=== PATIENT | female | born 1990 | race African-American/Black ===

== ENCOUNTER 2016-07-31 22:20 | Inpatient (IN) | payer OTHER ==
--- NOTE | ~2016-07-31 | US84 ---
[id number] [facility] [address] [place], [place] [address] [id number] E MR#: [id number] Acc #: [id number] NAME: YANDEL RUFFIN : 1990 SEX: F STUDY DATE/TIME: 07/31/2016 22:32 UNIT: [facility] ROOM: STUDY DESCRIPTION: US LE Veins Complete Thony Stdy Attending Physician: Jonnie Ernst D.O. Ordering Physician: Jonnie Ernst D.O. Primary Care Physician: No Primary Care Physician MEDICAL IMAGING REPORT This report is preliminary unless electronic signature is present EXAM Venous Doppler ultrasound, both legs, 07/31/2016. HISTORY 26-year-old female in the ED complaining of 1-week history of bilateral lower extremity pain and swelling. TECHNIQUE Venous ultrasound examination of both lower extremities was performed using grayscale, spectral Doppler and color flow Doppler imaging. FINDINGS The examination is negative. There is no evidence of deep venous thrombus from the groin to the lower calf bilaterally. Visualized greater saphenous veins are also patent. IMPRESSION Negative examination. No evidence of lower extremity deep venous thrombosis. Dictated by... Garrett Law M.D. THIS IS AN ELECTRONICALLY VERIFIED REPORT Garrett Law M.D. at 08/05/2016 5:00 PM FERCHO/lila TD: 08/01/2016 07:10 JOB #: [id number] MEDICAL IMAGING REPORT Page 1 of 1 COPY
--- NOTE | ~2016-07-31 | HP ---
Unit #: [id number] #: [id number] Patient: YANDEL RUFFIN [id number] [address] [place], [place] [address] [id number] I MR#: [id number] NAME: YANDEL RUFFIN ROOM: 13250 Age: 26 Sex: F Admission Date: 08/01/2016 : 1990 Attending Physician: Guerrero Boss M.D. Primary Care Physician: No Primary Care Physician HISTORY AND PHYSICAL CHIEF COMPLAINT Bilateral lower extremity edema and shortness of breath. HISTORY OF PRESENTING ILLNESS The patient is a 26-year-old -[place] lady with a past medical history of morbid obesity, diabetes mellitus type 2, on insulin, poorly controlled, presented to the emergency room with a chief complaint of edema of both legs which is persisting for almost one week. She mentions that she is unable to lie flat in the bed. She requires pillows and she wakes up in the night frequently due to shortness of breath. She denies any change in the medications. Because of the edema of the lower extremities, she had an ultrasound of the lower extremities which was negative for DVT. She was given Lasix and is getting admitted for further management. She denies any fevers. Complains of occasional cough with production of sputum. No chills. Did not receive a flu vaccine. No chest pains, no palpitations, no abdominal pain, no diarrhea. No dysuria. No recent change in the medications. For diabetes, she follows up with Dr. Sweeney and she mentions she saw him there days ago. PAST MEDICAL HISTORY 1. History of diabetes mellitus type 2, poorly controlled. 2. History of hypertension. 3. History of urinary tract infection with Klebsiella in 2010. 4. History of glaucoma and left eye partial blindness. SOCIAL HISTORY Currently on disability. Smokes a pack a day. Denies alcohol or illicit drugs. HOME MEDICATIONS We are trying to get a list from the pharmacy. She mentions she is on Levemir and Humalog insulin. Apparently the [facility] which she goes told the nurse that she didn't brass pickler the medications for more than a year to get from them. ALLERGIES Include iodine, shellfish. FAMILY HISTORY Positive for breast cancer and prostate cancer in her grandmother and Unit #: [id number] #: [id number] Patient: YANDEL RUFFIN grandfather respectively. REVIEW OF SYSTEMS Complete review of systems were negative except for what is mentioned in the HPI. PHYSICAL EXAMINATION VITAL SIGNS: Temperature 98, pulse 115, respiratory rate 18, blood pressure 139/78. GENERAL: The patient is moderately obese. Alert and oriented x3, lying in the bed in no acute distress. HEENT: Normocephalic, atraumatic. No icterus. PERRLA. Extraocular movements intact. NECK: Supple. No JVD. HEART: S1, S2. Tachycardic. CHEST: Bilaterally equal, bibasilar crackles. ABDOMEN: Obese, soft, nontender. She does have some edema in the lower abdomen. EXTREMITIES: 2+ edema. Hold lower extremities. NEUROLOGICAL: No focal deficits. Kindly note - left eye is red, swollen which she mentions at the baseline. DIAGNOSTIC STUDIES LABORATORY: Glucose 260, BUN 18, creatinine 0.6, sodium 132, potassium 3.9, chloride 101, bicarb 23, albumin 2.8. WBC 8.4, hemoglobin 10.7, MCV 71, platelet count 437. UA shows 1+ protein, leukocyte esterase and nitrite negative. RBC 10-25, WBC 0-2, bacteria negative. IMAGING: Chest x-ray essentially normal. ASSESSMENT AND PLAN 1. Edema and shortness of breath consistent with possible acute systolic heart failure: Will check a stat 2D echo with Doppler. Will request Cardiology to evaluate. Will keep her on Lasix 40 mg IV b.i.d. Will also start on a low dose of lisinopril 5 mg p.o. daily. I explained to her about the side effects of lisinopril including cough, acute renal failure and angioedema. Will also start her on beta marychuy, Coreg 3.125 mg twice a day. Will check lipid panel. Will check a TSH. Will gently diurese her and monitor. I explained to her that she needs to take a low salt diet. 2. Diabetes type 2, poorly controlled: Will check an A1c from previous hospitalizations. They were issues with noncompliance and for that she needs to watch her diet and take her insulin regularly. Will also request dietary to evaluate her. 3. Morbid obesity: Will check an A1c, TSH. Will also check a lipid panel and will go from there. 4. History of glaucoma: Will request her to follow with tenter frame operator as an outpatient. 5. Anemia with hemoglobin of 10 and microcytic: Will check iron storers. 6. DVT precautions. Further recommendations per hospital course. Unit #: [id number] #: [id number] Patient: YANDEL RUFFIN Dictated by Charmaine Ovalle/luiz TD: 08/01/2016 11:51 JOB #: [id number] HISTORY AND PHYSICAL Page 1 of 1 X X HISTORY AND PHYSICAL
--- NOTE | ~2016-07-31 | CO ---
Unit #: [id number] #: [id number] Patient: YANDEL RUFFIN [id number] [facility] [address] [place], [place] [address] [id number] I MR#: [id number] NAME: YANDEL RUFFIN ROOM: 563 Age: 26 Sex: F Admission Date: 08/01/2016 : 1990 Attending Physician: Guerrero Boss M.D. Primary Care Physician: Primary Care Physician No Consultation Date: 08/01/2016 CONSULTATION REPORT HISTORY OF PRESENT ILLNESS This is a 26-year-old female, with past medical history of uncontrolled type 1 diabetes with the last A1C of 13.6, hyperlipidemia, high blood pressure although she is on lisinopril at home but never been diagnosed with hypertension and chronic migraines. She uses tobacco, smokes usq-if-[id number] cigarettes daily. She presented to the [facility] emergency room with complaints of bilateral lower extremity pain and swelling for about two weeks, and in the emergency room her blood pressure, on admission was 191/101. Urinalysis also showed that she had 1+ protein and glucose was greater than 1000 in her urine. She follows with Dr. Sweeney for her diabetes. She has been a type 1 diabetic since the age of 9. Her last A1c was 13.6 and prior to that was 12.3. A bilateral lower extremity Doppler was obtained to rule out DVT and was negative for any DVT. Her D-dimer, on admission was 380. Albumin was found to be only 2.8, glucose was 307, sodium was 131, troponin has been less than 0.03 x2. Cardiac testing included an EKG done on 07/31 which showed sinus tachycardia, rate of 109 beats per minute. Also diagnostic testing in the ER, chest x-ray was completed on 07/31 and showed no active disease with borderline cardiomegaly and clear lungs. She also has a history of retinal detachment and she recently underwent left eye surgery. ALLERGIES None. HOME MEDICATIONS 1. Lipitor 20 mg daily 2. Flexeril 10 mg every8 hours as needed for muscle spasms 3. Neurontin 300 mg three times a day 4. Lantus Solostar 30 units at bedtime 5. NovoLog FlexPen 10 units subcu daily with meals 6. Lisinopril 10 mg p.o. daily FAMILY HISTORY Noncontributory. SOCIAL HISTORY She has been a diabetic since the age of 9, she does smoke two cigarettes per day. She denies any alcohol or illicit drug use. REVIEW OF SYSTEMS She has complaints of abdominal distention, her pants have been getting tighter, and bilateral lower extremity for about two weeks. She does complain of shortness of breath when she exerts herself for only about two weeks. She has had chest pain before; however, she has not had any in the Unit #: [id number] #: [id number] Patient: YANDEL RUFFIN last [id number]-[id number] weeks. She denies any palpitations, she denies orthopnea, she is legally blind in her left eye she reports. She has no dizziness and no syncope or presyncope. She has no numbness or tingling, or claudication to her lower extremities. PHYSICAL EXAMINATION VITAL SIGNS: Temperature 98.0, heart rate of 118, respirations 18, blood pressure 145/82 currently and she is 86 kilograms. GENERAL: Well-developed, well-nourished and an obese female who appears in no acute distress. NECK: Obese with no jugular venous distention and no bruits appreciated. LUNGS: Clear to auscultation. CARDIOVASCULAR: She is in a regular rate but is tachycardic. S1, S2 noted. She has possibly a mild gallop. ABDOMEN: Distended and tight but is nontender. EXTREMITIES: Also tight, she has tightness to her skin and she has very weak pulses. DIAGNOSTIC STUDIES Includes: LABORATORY: Laboratory testing included sodium 131, potassium 4.3, chloride 100, CO2 24, BUN is 13, creatinine is 0.6, glucose 307, albumin is 2.8, D-dimer was 390, hemoglobin is 10.7, hematocrit 34.5, platelets 437, WBCs 11.1, troponin had been less than 0.03 x2. All her other labs are unremarkable. Urinalysis; however, shows 1+ protein and over 1000 glucose. IMAGING: Chest x-ray on 07/31, showed no active disease, borderline cardiomegaly, and clear lungs. Bilateral lower extremity Doppler was negative for DVT. CARDIOVASCULAR: EKG on 07/31/16 showed sinus tachycardia, rate of 109. IMPRESSION 1. Uncontrolled diabetes. 2. Hypertension, uncontrolled or resistant hypertension. 3. Obesity. 4. Current tobacco use. 5. Tachycardia. 6. Generalized swelling to all extremities and abdomen. PLAN We will check a 2D echo, monitor her labs, check her thyroid function with a TSH and A1c for diabetes. Diurese her to help her blood pressure and start antihypertensives, including atenolol 25 mg daily with parameters to hold for a heart rate of less than 60 or systolic less than 100, Lasix 20 mg p.o. b.i.d., hold for systolic less than 100, hydralazine 25 b.i.d. hold for systolic less than 100 and Norvasc 5 mg p.o. daily, hold if systolic is less than 100. Further plan per Dr. Hurst or Dr. Tobar. Thank you for this consultation. Dictated by... Marilee Shearer APRN for Unit #: [id number] #: [id number] Patient: YANDEL RUFFIN M.D. TA/luda TD: 08/02/2016 14:59 JOB #: [id number] CONSULTATION REPORT Page 1 of 1 X X CONSULTATION REPORT
--- NOTE | ~2016-07-31 | CR72 ---
[facility] A Service of [facility] RADIOLOGY TEXT RESULTS PATIENT: YANDEL RUFFIN LOCATION: [facility] 563-01 : [birth year] UNIT #: [id number] AGE: [address]: Andreas Bryan MD SEX: F ORDER DR: [id number] [facility] [address] [place], [place] [address] [id number] E MR#: [id number] Acc #: [id number] NAME: YANDEL RUFFIN : 1990 SEX: F STUDY DATE/TIME: 07/31/2016 23:30 UNIT: [facility] ROOM: STUDY DESCRIPTION: CR Chest Single View Portable Attending Physician: Jnonie Ernst D.O. Ordering Physician: Jonnie Ernst D.O. Primary Care Physician: Primary Care Physician No MEDICAL IMAGING REPORT This report is preliminary unless electronic signature is present EXAM Portable chest x-ray 07/31/2016 HISTORY 26-year-old female in the ED complaining of 1-week history of lower extremity swelling. TECHNIQUE AP portable upright chest x-ray. FINDINGS Borderline cardiomegaly. Pulmonary vascularity is normal. The lungs are clear. No visible pulmonary infiltrate or pleural effusion. No change since 02/19/2016. IMPRESSION 1. No active disease. 2. Borderline cardiomegaly. Lungs clear. 3. No change since 02/19/2016. Dictated by... Garrett Law M.D. THIS IS AN ELECTRONICALLY VERIFIED REPORT Garrett Law M.D. at 08/05/2016 5:00 PM FERCHO/tiffanie TD: 08/01/2016 07:23 JOB #: [id number] MEDICAL IMAGING REPORT Page 1 of 1 COPY
--- NOTE | ~2016-07-31 | EKG ---
PATIENT: YANDEL RUFFIN UNIT #: [id number] Ventricular Rate: 109 BPM Atrial Rate: 109 BPM P-R Interval: 156 ms QRS Duration: 72 ms Q-T Interval: 346 ms QTC Calculation(Bezet): 465 ms P [place]: 62 degrees Calculated R [place]: 17 degrees Calculated T [place]: 47 degrees Diagnosis Line: Sinus tachycardia Diagnosis Line: Otherwise normal ECG Diagnosis Line: No previous ECGs available Diagnosis Line: Confirmed by EDWIN CARNEY MD ([id number]) on 08/04/2016 Diagnosis Line: 10:42:06 PM INTERPRETING MD: ROMMEL VU
--- NOTE | ~2016-07-31 | DS ---
Unit #: [id number] #: [id number] Patient: YANDEL RUFFIN [id number] [address] [place], [place] [address] [id number] I MR#: [id number] NAME: YANDEL RUFFIN ROOM: 563 Age: 26 Sex: F Admission Date: 08/01/2016 : 1990 Discharge Date: 08/05/2016 Attending Physician: Andreas Bryan M.D. Primary Care Physician: Primary Care Physician No DISCHARGE SUMMARY DISCHARGE DIAGNOSES 1. Acute on chronic diastolic heart failure. 2. Uncontrolled type 2 diabetes. 3. Morbid obesity. 4. Glaucoma. HOSPITAL COURSE The patient is a 26-year-old female, who presented to [facility] Emergency Department with a complaint of shortness of breath. Her symptom has been going on for approximately one week and associated with bilateral lower extremity edema. She also describes some orthopnea. The patient was admitted and started on diuretics. 2D echo was ordered and revealed a grade 1 diastolic dysfunction with normal ejection fraction. The patient's Lasix was dosed at 40 mg IV b.i.d. and the patient has diuresed well. At this time, she is being discharged on the same dose orally. In addition to the above, the patient was noted to have poorly controlled diabetes with an A1c of 12.8. In the hospital, she was managed with Levemir and NovoLog and is being discharged on the same. The patient also has had a complaint of eye pain associated with her glaucoma. She received some pain medication for this, but states that the real treatment is visit to her reception, Dr. Gómez which she anticipates happening in 2 days. Given the patient's good diuresis and the statement that her breathing is overall back to baseline. The patient is being discharged home at this time. DISCHARGE MEDICATIONS Neurontin 300 mg p.o. t.i.d., Coreg 6.25 mg p.o. b.i.d., Lasix 40 mg p.o. b.i.d., Lipitor 20 mg p.o. daily, hydralazine 25 mg p.o. t.i.d., lisinopril 20 mg daily, Levemir 25 units subcu b.i.d., NovoLog 10 units with meals, Flexeril 10 mg p.o. q.8 hours p.r.n., tramadol 50 mg p.o. q.8 hours p.r.n. FOLLOWUP The patient is to follow up with Dr. Tobar in 2 to 3 months. Additionally as mentioned above, the patient should follow up with Dr. óGmez in 2 days as this appointment had previously been scheduled. Unit #: [id number] #: [id number] Patient: YANDEL RUFFIN DISCHARGE DIET The patient should adhere to a healthy heart and diabetic diet. Dictated by... Andreas Bryan M.D. PABLO/hilario TD: 08/06/2016 02:37 JOB #: [id number] DISCHARGE SUMMARY Page 1 of 1 X Andreas Bryan MD X DISCHARGE SUMMARY
[~2016-07-31 22:20] MED LIST: ACETAMINOPHEN PO; ACETAMINOPHEN325 MG PO; AMOXICILLIN500 M1 PO; BACTRIM DS TABL1 TA1 PO; CELEXA20 MG PO; CIPRO PO; CIPRO750 MG PO; DOXYCYCLINE150 MG PO; FEOSOL PO; FLEXERIL10 MG PO; HUMALOG100 U/ML; HUMALOG100 U/ML SUBQ; HUMULIN R100 U/ML SUBQ; LANTUS100 U/ML SUBQ; LANTUS100 UNITS/; LANTUS100 UNITS/ SUBQ; LEVAQUIN750 MG PO; LEVEMIR100 UNITS/ SUBQ; LORTAB 5/500 TA1 TA1 PO; NAPROSYN500 MG PO; NO MEDICATIONS; NOVOLIN N100 UNIT/1 SQ; NOVOLIN N100 UNIT/1 SUBQ; NOVOLIN R100 UNITS/ INJ; NOVOLIN R100 UNITS/ SUBQ; PHENERGAN PR; PRILOSEC PO; VICODIN PO; ZOFRAN PO
[2016-08-01 00:35] LABS: CULTURE INDICATED? YES; U HYALINE CASTS AUWI 0-2 /[LPF]; URINE APPEARANCE CLEAR; URINE BACTERIA AUWI 1+ (NEGATIVE); URINE BILIRUBIN NEG (NEG); URINE BLOOD TRACE (NEG); URINE COLOR YELLOW; URINE GLUCOSE >1000 MG/DL (NEG); URINE KETONE TRACE (NEG); URINE LEUKOCYTE ESTERASE NEG (NEG); URINE NITRATE NEG (NEG); URINE PROTEIN 1+ (NEG); URINE SOURCE CLEAN CATCH; URINE SPECIFIC GRAVITY 1.031 (1.003-1.035); URINE SQUAMOUS EPITHELIAL CELL FEW /[HPF]; URINE UROBILINOGEN 0.2 MG/DL (NEG); UWBCS1 AUWI 0-2 (0-5)
[2016-08-01 01:21] LABS: POC - CKMB 2.2 ng/mL (0.0-7.9); POC - TROPONIN <0.05 ng/mL (<=0.05)
[2016-08-01 01:21] LABS: BASOPHIL% 0.4 % (0-2.5); EOSINOPHIL# 0.2 X10e3 (0-0.7); EOSINOPHIL% 1.4 % (0.0-7.0); HEMATOCRIT 33.3 % (35.0-45.0); HEMOGLOBIN 10.3 gm/dL (12.0-16.0); LYMPHOCYTE% 35.7 % (17.0-45.0); MEAN CELL VOLUME 71.4 FL (83-96); MEAN CORPUSCULAR HGB CONC 30.8 g/dL (30-36); MEAN PLATELET VOLUME 7.8 FL (6.5-11.5); MONOCYTE# 0.7 X10e3 (0-1.0); MONOCYTE% 5.9 % (3.0-12.0); NEUTROPHIL# 6.3 X10e3 (1.5-7.1); NEUTROPHIL% 56.6 % (40-75); PLATELET COUNT 448 X10e3 (140-420); RED BLOOD COUNT 4.67 X10e (3.90-5.30); RED CELL DISTRIBUTION WIDTH 14.3 % (11.0-15.5); WHITE BLOOD COUNT 11.1 X10e3 (4.0-10.5)
[2016-08-01 01:23] LABS: DIFF IND NO
[2016-08-01 01:37] LABS: INR 0.9; PARTIAL THROMBOPLASTIN TIME 23.1 SECONDS (23.5-31.3); PROTHROMBIN TIME (PATIENT) 9.3 SECONDS (9.6-11.5)
[2016-08-01 01:56] LABS: ALBUMIN SERUM 2.8 g/dL (3.5-5.0); ALKALINE PHOSPHATASE 72 U/L (32-92); ALT (SGPT) 31 U/L (10-40); AST (SGOT) 19 U/L (10-42); BILIRUBIN,TOTAL 0.2 mg/dL (0.2-2.0); BLOOD UREA NITROGEN 18 mg/dL (9-23); CALCIUM SERUM 8.9 mg/dL (8.4-10.2); CARBON DIOXIDE 23 mmol/L (22-31); CHLORIDE 101 mmol/L (100-111); CREATININE SERUM 0.6 mg/dL (0.6-1.4); GLOM FILT RATE Estimated 145.8 mL/min (>60); GLUCOSE FASTING 260 mg/dL (70-110); POTASSIUM 3.9 mmol/L (3.5-5.1); PROTEIN TOTAL SERUM 6.3 g/dL (6.0-8.3); SODIUM 132 mmol/L (135-145)
[2016-08-01 02:04] LABS: BILIRUBIN, DIRECT <0.1 mg/dL (0.0-0.2); BILIRUBIN,INDIRECT 0.1 mg/dL (0.0-0.9)
[2016-08-01 05:24] LABS: INFLUENZA A NEG (NEG); INFLUENZA B NEG (NEG)
[2016-08-01] MEDS ORDERED: LANTUS100 U/ML SUBQ (05:44)
[2016-08-01] MEDS ORDERED: HUMALOG100 U/ML SUBQ (05:44)
[2016-08-01] MEDS ORDERED: NEURONTIN300 MG PO ×2 (05:45→11:24)
[2016-08-01 10:12] LABS: HEMATOCRIT 34.5 % (35.0-45.0); HEMOGLOBIN 10.7 gm/dL (12.0-16.0); MEAN CORPUSCULAR HEMOGLOBIN 22.1 PG (28-34); MEAN CORPUSCULAR HGB CONC 31.2 g/dL (30-36); MEAN PLATELET VOLUME 7.8 FL (6.5-11.5); RED BLOOD COUNT 4.86 X10e (3.90-5.30); RED CELL DISTRIBUTION WIDTH 14.5 % (11.0-15.5); WHITE BLOOD COUNT 8.4 X10e3 (4.0-10.5)
[2016-08-01 11:22] LABS: BUN/CREATININE RATIO 21.66; CREATININE SERUM 0.6 mg/dL (0.6-1.4); GLOM FILT RATE Estimated 145.8 mL/min (>60); POTASSIUM 4.3 mmol/L (3.5-5.1)
[2016-08-01] MEDS ORDERED: FLEXERIL10 MG PO (11:23)
[2016-08-01] MEDS ORDERED: LIPITOR20 MG PO (11:23)
[2016-08-01] MEDS ORDERED: LANTUS SOLOSTAR3 ML SUBQ (11:25)
[2016-08-01] MEDS ORDERED: LISINOPRIL10 MG (11:25)
[2016-08-01] MEDS ORDERED: NOVOLOG FL100 UNIT/1 SUBQ (11:26)
[2016-08-01] MEDS ORDERED: LISINOPRIL10 MG PO (11:28)
[2016-08-01 11:41] LABS: %MB 0.8 % (0.0-4.0); MB 2.5 ng/ml
[2016-08-01 15:39] LABS: %MB 0.8 % (0.0-4.0); MB 2.2 ng/ml
[2016-08-01 16:14] LABS: CHOLESTEROL 259 mg/dL (0-200); HDL CHOLESTEROL 48 mg/dL (35-95); LDL CHOLESTEROL 163 mg/dL (-130); LDL/HDL RATIO 3 RATIO (0-4); TRIGLYCERIDES 242 mg/dL (10-160)
[2016-08-01 21:11] LABS: %MB 1.3 % (0.0-4.0); MB 3.1 ng/ml
[2016-08-02 08:46] LABS: BUN/CREATININE RATIO 27.14; CALCIUM SERUM 8.5 mg/dL (8.4-10.2); CREATININE SERUM 0.7 mg/dL (0.6-1.4); GLOM FILT RATE Estimated 138.6 mL/min (>60); MAGNESIUM 1.6 mg/dL (1.6-3.0); POTASSIUM 4.9 mmol/L (3.5-5.1)
[2016-08-02 10:02] LABS: FOLATE (FOLIC ACID) 12.9 ng/mL (>5.8)
[2016-08-04 07:50] LABS: BUN/CREATININE RATIO 34.28; CREATININE SERUM 0.7 mg/dL (0.6-1.4); GLOM FILT RATE Estimated 138.6 mL/min (>60); MAGNESIUM 1.6 mg/dL (1.6-3.0); POTASSIUM 4.2 mmol/L (3.5-5.1)
[2016-08-05 07:36] LABS: BUN/CREATININE RATIO 32.22; CALCIUM SERUM 8.9 mg/dL (8.4-10.2); CREATININE SERUM 0.9 mg/dL (0.6-1.4); GLOM FILT RATE Estimated 102.3 mL/min (>60); MAGNESIUM 1.6 mg/dL (1.6-3.0); POTASSIUM 4.1 mmol/L (3.5-5.1)
[2016-08-05] MEDS ORDERED: LISINOPRIL20 MG PO (17:41)
[2016-08-05] MEDS ORDERED: LEVEMIR100 UNITS/ SUBQ (17:43)
[2016-08-05] MEDS ORDERED: NOVOLOG100 U/ML SUBQ (17:44)
[2016-08-05] MEDS ORDERED: HYDRALAZINE HCL25 MG PO (17:47)
[2016-08-05] MEDS ORDERED: LASIX PO (17:48)
[2016-08-05] MEDS ORDERED: COREG6.25 MG PO (17:48)
[2016-08-05] MEDS ORDERED: K-DUR20 ME1 PO (17:49)
[2016-08-05] MEDS ORDERED: ULTRAM PO (17:50)
== END 2016-08-05 19:47 | disposition home or self-care (01) | DRG 293 ==
LOC: CED 22:20 → CEDOF 08-01 06:47 → C5C 08-01 18:33
PROVIDERS: Emergency Medicine; Internal Medicine; Nurse Practitioner; Nurse Practitioner Family
PROC: B246YZZ Ultrasonography of Right and Left Heart using Other Contrast (ICD-10-PCS; principal; 2016-08-01)
DX: I50.33 Acute on chronic diastolic (congestive) heart failure (principal); E11.65 Type 2 diabetes mellitus with hyperglycemia; E88.81 Metabolic syndrome and other insulin resistance; H40.9 Unspecified glaucoma; E78.5 Hyperlipidemia, unspecified; I10 Essential (primary) hypertension; G43.909 Migraine, unspecified, not intractable, without status migrainosus; F17.210 Nicotine dependence, cigarettes, uncomplicated; H54.42 Blindness, left eye, normal vision right eye; E66.01 Morbid (severe) obesity due to excess calories; R00.0 Tachycardia, unspecified; Z79.4 Long term (current) use of insulin; Z88.8 Allergy status to other drugs, medicaments and biological substances; Z91.013 Allergy to seafood; Z82.49 Family history of ischemic heart disease and other diseases of the circulatory system; E83.42 Hypomagnesemia; Z91.19 Patient's noncompliance with other medical treatment and regimen
CPT/HCPCS: 36415; 71010; 80048; 80061; 80076; 81003; 82308; 82533; 82550; 82553; 82607; 82746; 82947; 83036; 83540; 83550; 83605; 83735; 83880; 84443; 84484; 84703; 85025; 85027; 85379; 85610; 85730; 87086; 87804; 93005; 93306; 93970; 96365; 99285; J0360; J0456; J0696; J1650; J1815; J1940; J2405

== ENCOUNTER 2016-09-08 22:29 | Emergency (ER) | payer OTHER ==
--- NOTE | ~2016-09-08 | CR72 ---
[facility] A Service of [facility] RADIOLOGY TEXT RESULTS PATIENT: YANDEL RUFFIN LOCATION: [facility] UNIT : 90 UNIT #: [id number] AGE: [address]: John Rolle MD SEX: F ORDER DR: [id number] [facility] [address] [place], [place] [address] [id number] E MR#: [id number] Acc #: [id number] NAME: YANDEL RUFFIN : 1990 SEX: F STUDY DATE/TIME: 09/08/2016 22:40 UNIT: [facility] ROOM: STUDY DESCRIPTION: CR Chest Single View Portable Attending Physician: John Rolle M.D. Ordering Physician: John Rolle M.D. Primary Care Physician: Primary Care Physician No MEDICAL IMAGING REPORT This report is preliminary unless electronic signature is present EXAM Portable chest, 09/08/2016 at 22:40 INDICATION Anxiety and shortness of air for 1 month, worse tonight. FINDINGS AP portable chest compared with 07/31/2016. The heart remains enlarged. Allowing for soft tissue attenuation, the lungs are clear. No pneumothorax. IMPRESSION Stable cardiomegaly. No active disease. Dictated by... Marlon Berg Jr., M.D. THIS IS AN ELECTRONICALLY VERIFIED REPORT Marlon Berg Jr., M.D. at 09/09/2016 8:01 AM NICOLASA/glenn TD: 09/08/2016 23:19 JOB #: [id number] MEDICAL IMAGING REPORT Page 1 of 1 COPY
--- NOTE | ~2016-09-08 | EKG ---
PATIENT: YANDEL RUFFIN UNIT #: [id number] Ventricular Rate: 96 BPM Atrial Rate: 96 BPM P-R Interval: 156 ms QRS Duration: 68 ms Q-T Interval: 372 ms QTC Calculation(Bezet): 469 ms P [place]: 45 degrees Calculated R [place]: 18 degrees Calculated T [place]: 23 degrees Diagnosis Line: Normal sinus rhythm Diagnosis Line: Possible Left atrial enlargement Diagnosis Line: Septal infarct , age undetermined Diagnosis Line: Abnormal ECG Diagnosis Line: When compared with ECG of 31-JUL-2016 22:57, Diagnosis Line: Septal infarct is now Present Diagnosis Line: Confirmed by CHINYERE BOONE MD ([id number]) on Diagnosis Line: 09/09/2016 4:36:42 PM INTERPRETING MD: MELY VU
[~2016-09-08 22:29] MED LIST changes: +COREG6.25 MG PO; +HYDRALAZINE HCL25 MG PO; +K-DUR20 ME1 PO; +LANTUS SOLOSTAR3 ML SUBQ; +LASIX PO; +LIPITOR20 MG PO; +LISINOPRIL10 MG; +LISINOPRIL10 MG PO; +LISINOPRIL20 MG PO; +NEURONTIN300 MG PO; +NOVOLOG FL100 UNIT/1 SUBQ; +NOVOLOG100 U/ML SUBQ; +ULTRAM PO
[2016-09-08 23:52] LABS: BASOPHIL# 0.1 X10e3 (0-0.3); BASOPHIL% 0.4 % (0-2.5); EOSINOPHIL# 0.1 X10e3 (0-0.7); EOSINOPHIL% 0.9 % (0.0-7.0); LYMPHOCYTE# 2.2 X10e3 (1.0-3.5); LYMPHOCYTE% 17.2 % (17.0-45.0); MEAN CELL VOLUME 71.2 FL (83-96); MEAN CORPUSCULAR HEMOGLOBIN 22.1 PG (28-34); MEAN CORPUSCULAR HGB CONC 31.1 g/dL (30-36); MEAN PLATELET VOLUME 7.9 FL (6.5-11.5); MONOCYTE# 0.7 X10e3 (0-1.0); MONOCYTE% 5.3 % (3.0-12.0); NEUTROPHIL# 9.7 X10e3 (1.5-7.1); NEUTROPHIL% 76.2 % (40-75); PLATELET COUNT 468 X10e3 (140-420); RED BLOOD COUNT 4.08 X10e (3.90-5.30); RED CELL DISTRIBUTION WIDTH 15.3 % (11.0-15.5); WHITE BLOOD COUNT 12.7 X10e3 (4.0-10.5)
[2016-09-08 23:53] LABS: DIFF IND NO
[2016-09-08 23:58] LABS: URINE SOURCE CLEAN CATCH
[2016-09-09 00:02] LABS: POC - CKMB 3.8 ng/mL (0.0-7.9); POC - TROPONIN <0.05 ng/mL (<=0.05)
[2016-09-09 00:09] LABS: URINE APPEARANCE CLEAR; URINE BILIRUBIN NEG (NEG); URINE BLOOD TRACE (NEG); URINE COLOR YELLOW; URINE GLUCOSE 500 MG/DL (NEG); URINE KETONE NEG (NEG); URINE LEUKOCYTE ESTERASE NEG (NEG); URINE NITRATE NEG (NEG); URINE PH 7.5 (5-8); URINE PROTEIN 2+ (NEG); URINE SPECIFIC GRAVITY 1.015 (1.003-1.035)
[2016-09-09 00:12] LABS: ALBUMIN SERUM 3.1 g/dL (3.5-5.0); BILIRUBIN, DIRECT 0.1 mg/dL (0.0-0.2); BILIRUBIN,INDIRECT 0.1 mg/dL (0.0-0.9); BILIRUBIN,TOTAL 0.2 mg/dL (0.2-2.0); BUN/CREATININE RATIO 23.75; CALCIUM SERUM 8.7 mg/dL (8.4-10.2); CREATININE SERUM 0.8 mg/dL (0.6-1.4); POTASSIUM 3.6 mmol/L (3.5-5.1); PROTEIN TOTAL SERUM 6.8 g/dL (6.0-8.3)
[2016-09-09 00:12] LABS: CULTURE INDICATED? YES; URINE BACTERIA AUWI 1+ (NEGATIVE); URINE SQUAMOUS EPITHELIAL CELL OCC /[HPF]
== END 2016-09-09 00:45 | disposition home or self-care (01) ==
LOC: CED 22:29
PROVIDERS: Emergency Medicine
DX: R55 Syncope and collapse (principal); K21.9 Gastro-esophageal reflux disease without esophagitis; F41.9 Anxiety disorder, unspecified; E11.9 Type 2 diabetes mellitus without complications; J45.909 Unspecified asthma, uncomplicated; I50.9 Heart failure, unspecified; I11.0 Hypertensive heart disease with heart failure; F17.200 Nicotine dependence, unspecified, uncomplicated; Z79.899 Other long term (current) drug therapy; Z88.8 Allergy status to other drugs, medicaments and biological substances; Z91.013 Allergy to seafood
CPT/HCPCS: 36415; 71010; 80048; 80076; 81003; 82553; 82947; 84484; 84703; 85025; 87086; 93005; 96361; 96374; 99284